=== PATIENT | female | born 1945 | race Two or more races ===

== ENCOUNTER 2016-10-06 10:20 | Emergency (ER) | payer OTHER ==
--- NOTE | 2016-10-06 10:22 | PDOC ---
History of Present Illness - General Chief Complaint: Pain, Acute Stated Complaint: LOW BACK PAIN Time Seen by Provider: 10/06/16 10:21 History Source: Patient Exam Limitations: No Limitations - History of Present Illness Initial Comments: 10/06/16 10:37 This is a 71-year-old female with a history of diabetes, hypertension, hyperlipidemia, asthma who presents emergency department with a complaint of lower back pain. Patient states that she was in her usual state of health until 2 days ago. She bent over sideways to bulk picker a piece of paper off of the ground and noted immediate back pain. Patient initially took Tylenol for her symptoms and then Advil Neither has helped her PT describes her pain sharp aching, rates it 8/10, radiation down the back, worse with movement of the leg or back No bowel or bladder incontinence No fevers or chills no cancer Pt reports pain in the right buttock PMH: DM, HTN, HLD, Asthma PSH: Cholecystectomy Meds: please see MAR ALL: NKDA Social: denies alcohol, drug, or cigarette use GENERAL/CONSTITUTIONAL: No: fever, chills, weakness, loss of appetite. HEAD, EYES, EARS, NOSE AND THROAT: No: change in vision, ear pain, discharge, sore throat, throat swelling. CARDIOVASCULAR: No: chest pain, lightheadedness, palpitations, syncope RESPIRATORY: No: cough, shortness of breath GASTROINTESTINAL: No: nausea, vomiting, diarrhea, abdominal pain GENITOURINARY: No: dysuria, hematuria, flank pain. MUSCULOSKELETAL: Yes: back/buttock pain No: neck pain, joint pain, muscle swelling or pain SKIN: No: lesions, pallor, rash or easy bruising. NEUROLOGIC: No: headache, vertigo, paresthesias, weakness ENDOCRINE: No: unexplained weight gain or loss HEMATOLOGIC/LYMPHATIC: No: anemia, easy bleeding, swelling nodes. GENERAL: The patient is in no acute distress. HEAD: Normal with no signs of trauma. EYES: PERRLA, EOMI, sclera anicteric, conjunctiva clear. ENT: Ears normal, nares patent, oropharynx clear without exudates. Moist mucous membranes. NECK: Normal range of motion, supple LUNGS: Breath sounds equal, clear to auscultation bilaterally. HEART:Regular rate and rhythm ABDOMEN: Soft, nontender, normoactive bowel sounds. No guarding, no rebound. No CVA tenderness to palpation. No pulsatile mass EXTREMITIES: Normal range of motion, no edema. No clubbing or cyanosis. No erythema, or tenderness. NEUROLOGICAL: Cranial nerves II through XII grossly intact. Normal speech. No focal neurological deficits. MUSCULOSKELETAL: No midline lumbar tenderness to palpation, Right buttock tender to palpation, Pain elicited with movement to the right or the left, pain elicited with lifting leg Past History - Past Medical History Allergies/Adverse Reactions: Allergies Allergy/AdvReac Type Severity Reaction Status Date / Time No Known Allergies Allergy Verified 10/06/16 10:21 Home Medications: Ambulatory Orders Acetaminophen W/ Codeine #3 [Tylenol # 3 -] 1 tab PO TID PRN #9 tablet MDD 3 Alendronate Na [Fosamax] 0 mg PO WEEKLY 10/06/16 Amlodipine Besylate [Norvasc -] 5 mg PO DAILY 10/06/16 Atorvastatin Ca [Lipitor] 10 mg PO HS 10/06/16 Lidocaine 5% Patch [Lidoderm Patch -] 1 patch TP DAILY PRN #30 patch 10/06/16 Losartan Potassium [Cozaar] 100 mg PO DAILY 10/06/16 Metformin HCl 500 mg PO BID 10/06/16 Metformin HCl [Glucophage] 1,000 mg PO HS 10/06/16 Methocarbamol [Robaxin -] 500 mg PO TID PRN #30 tablet 10/06/16 Montelukast Na [Singulair -] 10 mg PO HS 10/06/16 Salmeterol/Fluticasone [Advair 100Mcg/50Mcg -] 1 puff IH ASDIR 10/06/16 Medical Decision Making - Medical Decision Making 71 yo F presenting with right buttock pain which began after bending to the side and lifting something off of the floor DD: musculoskeletal pain, sciatica, less likely aortic aneurysm No abdominal pain No midline back pain No abdominal distention or pulsitile mass Because of this I do not believe this is due to AAA Pain elicited with movement, but pt able to ambulate Will give discharge with pain medications Follow up with PMD Follow up with Neuro for possible PT if no improvement *DC/Admit/Observation/Transfer Diagnosis at time of Disposition: Sciatica Qualifiers: Laterality: right Qualified Code(s): M54.31 - Sciatica, right side - Discharge Dispostion Disposition: HOME Condition at time of disposition: Stable Admit: No - Prescriptions Prescriptions: Lidocaine 5% Patch [Lidoderm Patch -] 1 patch TP DAILY PRN #30 patch PRN Reason: Pain Methocarbamol [Robaxin -] 500 mg PO TID PRN #30 tablet PRN Reason: Lower Back Pain Acetaminophen W/ Codeine #3 [Tylenol # 3 -] 1 tab PO TID PRN #9 tablet MDD 3 PRN Reason: Back Pain - Referrals Referrals: Galindo Hendricks MD [Staff Physician] - - Patient Instructions Printed Discharge Instructions: DI for Low Back Pain Additional Instructions: THank you for coming in to the ER Please take medications as prescribed Please return to the ER for worsening pain, loss of bowel or bladder control Please follow up with your primary physician in 2-3 days
[2016-10-06 10:29] VITALS: BP 145/81; PULSE 87; TEMP 98.2; BMI 24.5
[2016-10-06] MEDS ORDERED: ACETAMINOPHEN WITH CODEINE 300MG/30MG TABLET ONE (10:54)
[2016-10-06] MEDS ORDERED: ACETAMINOPHEN WITH CODEINE 300MG/30MG TABLET PO ONE (10:55)
== END 2016-10-06 11:21 | disposition home or self-care (01) ==
LOC: FER 10:20
DX: M54.31 Sciatica, right side (principal); E11.9 Type 2 diabetes mellitus without complications; I10 Essential (primary) hypertension; E78.5 Hyperlipidemia, unspecified; J45.909 Unspecified asthma, uncomplicated; Z79.84 Long term (current) use of oral hypoglycemic drugs
CPT/HCPCS: 99282-25